=== PATIENT | female | born 1950 | race Caucasian/White ===

== ENCOUNTER → 2016-10-19 | Outpatient (REF) ==
[~2016-10-19] MED LIST: ADVICOR 20 MG-51 TER PO; ALEVE 220MG220 MG PO; ASPIRIN E.C. 8181 MG PO; CEPHALEXIN500 M1 PO; COZAAR 50MG50 MG/TAB PO; CRANBERRY1000 MG PO; FISH OIL1000 MG PO; FOLIC ACID 40400 MCG PO; GLUCOSAMINE CHO1 CA2 PO; IRON325 M1 PO; LACTOBACILLUS ACIDOPHILUS; NIACIN500 M3 PO; NORCO 325 MG-7.1 TAB PO; NORVASC 5MG5 MG/TAB PO; PHENERGAN 25 TA25 MG PO; VAGIFEM10 MCG VG; VITAMIN C500 MG PO; VITAMIN D31000 IU PO
== END ==
LOC: WSOH 10:46
DX: Z02.89 Encounter for other administrative examinations (principal)

== ENCOUNTER 2016-11-28 10:52 | Outpatient (RCR) | payer OTHER | END 2016-12-27 11:32 | LOC: WSOH 10:52 | DX: S46.812A Strain of other muscles, fascia and tendons at shoulder and upper arm level, left arm, initial encounter (principal); M25.522 Pain in left elbow; R20.0 Anesthesia of skin; X50.3XXA Overexertion from repetitive movements, initial encounter; Y99.0 Civilian activity done for income or pay | CPT/HCPCS: G0283-GP ==

== ENCOUNTER → 2017-01-27 | Outpatient (CLI) | payer MEDICARE, OTHER | LOC: MC.RAD 08:10 | DX: Z12.31 Encounter for screening mammogram for malignant neoplasm of breast (principal) ==

== ENCOUNTER → 2017-01-30 | Outpatient (REF) | LOC: WSOH 17:15 | DX: Z02.89 Encounter for other administrative examinations (principal) ==

== ENCOUNTER → 2017-05-08 | Outpatient (CLI) | payer MEDICARE, OTHER | LOC: COL.RAD 08:00 | DX: M25.552 Pain in left hip (principal) | CPT/HCPCS: J3301; Q9967 ==

== ENCOUNTER → 2017-06-07 | Outpatient (REF) ==
[2017-06-07 07:13] LABS: COLLECTION METHOD CATHETER
[2017-06-07 07:20] LABS: MUCOUS Present /lpf; PH 5 (5-8); SQUAMOUS EPITHELIAL 0-2 /hpf; URINE APPEARANCE Clear; URINE BACTERIA None Seen /hpf; URINE BILIRUBIN Negative (NEGATIVE); URINE BLOOD Negative (NEGATIVE); URINE COLOR Yellow; URINE GLUCOSE Negative (NEGATIVE); URINE KETONE Negative (NEGATIVE); URINE LEUKOCYTE ESTERASE Negative (NEGATIVE); URINE NITRATE Negative (NEGATIVE); URINE PROTEIN(semi-quant) Negative (NEGATIVE); URINE RBC 0-2 /hpf; URINE UROBILINOGEN Negative (NEGATIVE); URINE WBC 0-2 /hpf
== END ==
LOC: ZMSC 07:09
PROVIDERS: Family Medicine
DX: Z01.89 Encounter for other specified special examinations (principal)

== ENCOUNTER → 2018-06-05 | Outpatient (CLI) | payer MEDICARE, OTHER | LOC: COL.LAB 08:43 | DX: Z01.812 Encounter for preprocedural laboratory examination (principal) ==

== ENCOUNTER → 2018-08-28 | Outpatient (CLI) | payer MEDICARE, OTHER | LOC: COL.RAD 13:46 | DX: R22.1 Localized swelling, mass and lump, neck (principal) ==

== ENCOUNTER → 2019-02-12 | Outpatient (CLI) | payer MEDICARE, OTHER | LOC: MC.RAD 07:09 | DX: Z12.31 Encounter for screening mammogram for malignant neoplasm of breast (principal) ==